=== PATIENT | male | born 1990 | race American Indian/Alaskan Native ===

== ENCOUNTER 2017-06-29 09:47 | Outpatient (CLI) | payer OTHER ==
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
--- NOTE | 2017-06-29 11:11 | XRay Report ---
Left shoulder 3 views: History: Pain left shoulder. Findings: No bony or articular abnormality. No fracture or dislocation no soft tissue calcification. There is suspected tiny spur identified at the distal aspect of the acromion at the tip. Impression: Suspicion of small spur distal acromion.
== END 2017-06-29 09:48 | disposition home or self-care (01) ==
LOC: XRAY 09:47
PROVIDERS: ATTEND Internal Medicine
DX: S13.4XXA Sprain of ligaments of cervical spine, initial encounter (principal); M25.512 Pain in left shoulder; X58.XXXA Exposure to other specified factors, initial encounter; Y93.89 Activity, other specified; Y92.89 Other specified places as the place of occurrence of the external cause; Y99.8 Other external cause status
CPT/HCPCS: 72050